=== PATIENT | male | born 1965 | race Caucasian/White ===

== ENCOUNTER 2019-07-07 21:17 | Emergency (ER) | payer OTHER ==
[~2019-07-07] VITALS: Ht 167.6 cm; Wt 80.7 kg
[2019-07-07 21:20] VITALS: BP 155/72
--- NOTE | 2019-07-07 21:20 | NUR ---
53 Y/O MALE C/O COUGH,V,FEVER X LAST NIGHT. RATES PAIN 8/10 AND DESCRIBES IT PRESSURE. VSS. DRY COUGH PRESENT. CHANGE OF APPETTIE. ABD IS ROUND, SOFT, ACITVE BS, NONTENDER. DIAHRREA (3 EPISODES), NO RESP DISTRESS NOTED. A & O X4. ALLERGIES: PENCILLIN PMH: DM, HTN, SC (5 X), STROKE (7 X), HEMORROID, SCIATICA.
--- NOTE | 2019-07-07 21:20 | NUR ---
to bed # 11 ambulatory
[2019-07-07] MEDS ORDERED: OSELTAMIVIR PHOSPHATE 75 MG CAP PO ONE (22:30)
[2019-07-07] MEDS ORDERED: KETOROLAC 60 MG/2 ML VIAL IM ONE (22:30)
[2019-07-07] MEDS ORDERED: ALBUTEROL 0.083% 2.5 MG/3 ML NEBU INH ONE (22:30)
--- NOTE | 2019-07-07 22:45 | NUR ---
PT REPORTS "I FEEL BETTER " AFTER BREATHING TX
--- NOTE | 2019-07-07 23:15 | NUR ---
Patient discharged with v/s stable. Written and verbal after care instructions given and explained. Patient alert, oriented and verbalized understanding of instructions. Ambulatory with steady gait. All questions addressed prior to discharge. ID band removed. Patient advised to follow up with PMD. Rx of TAMIFLU, ALBUTEROL, NAPROSYN, AND NITROGLYCERIN given. Patient educated on indication of medication including possible reaction and side effects. Opportunity to ask questions provided and answered.
== END 2019-07-07 23:15 | disposition home or self-care (01) ==
LOC: MED 21:17
DX: J10.1 Influenza due to other identified influenza virus with other respiratory manifestations (principal); R11.10 Vomiting, unspecified; Z88.0 Allergy status to penicillin
CPT/HCPCS: 87804; 93005; 94640; 96372; 99284; J1885; J7613

== ENCOUNTER 2020-04-08 17:35 | Emergency (ER) | payer OTHER ==
[~2020-04-08] VITALS: Ht 167.6 cm; Wt 83.0 kg
[2020-04-08 17:40] VITALS: BP 144/87
--- NOTE | 2020-04-08 17:50 | NUR ---
PATIENT PRESENTS TO ED WITH RIGHT LOWER EXTREMITIY BURNING AND STABBING PAIN R/T HIS SCIATICA . PT STATES FOR THE LAST TWO DAYS HE HAS HAD INTENSE SHARP PAIN RADIATING UP HIS RIGHT LEG TO HIS HIP, PT DESCRIBES PAIN UNBEARABLE. PT HAS PAIN MANAGEMENT APPOINTMENTS IN MAY BUT STATES HE CANNOT WAIT UNTIL THEN. AMBULATORY WITH CANE. DENIES N/V/D; SKIN IS PINK/WARM/DRY; AAOX4 WITH EVEN AND STEADY GAIT; LUNGS CLEAR BL; HR EVEN AND REGULAR; PT DENIES ANY FEVER, CP, SOB, OR COUGH AT THIS TIME; PATIENT STATES PAIN OF 9/10 AT THIS TIME; VSS; PATIENT POSITIONED FOR COMFORT; HOB ELEVATED; BEDRAILS UP X2; BED DOWN. ER MD MADE AWARE OF PT STATUS.
[2020-04-08] MEDS: HYDROcodone/APAP 5/325 MG 1 TAB TAB PO ONE (18:32)
[2020-04-08] MEDS: KETOROLAC 30 MG/ML VIAL IM ONE (18:32)
[2020-04-08 19:03] VITALS: BP 144/87
--- NOTE | 2020-04-08 19:03 | NUR ---
Patient discharged with v/s stable. Written and verbal after care instructions given and explained. Patient verbalized understanding. Ambulatory with steady gait. All questions addressed prior to discharge. Advised to follow up with PMD.
== END 2020-04-08 19:03 | disposition home or self-care (01) ==
LOC: MED 17:35
DX: R10.2 Pelvic and perineal pain (principal); I63.9 Cerebral infarction, unspecified; I51.89 Other ill-defined heart diseases; I10 Essential (primary) hypertension; J45.909 Unspecified asthma, uncomplicated; Z88.0 Allergy status to penicillin
CPT/HCPCS: 96372; 99283; J1885

== ENCOUNTER 2020-11-23 06:33 | Emergency (ER) | payer OTHER ==
[~2020-11-23] VITALS: Ht 167.6 cm; Wt 95.3 kg
[2020-11-23 06:40] VITALS: BP 142/90
--- NOTE | 2020-11-23 06:40 | NUR ---
TO BED AMBULATORY
--- NOTE | 2020-11-23 06:50 | NUR ---
BACK PAIN FOR 2 DAYS, S/P FALL FROM HIS SCOOTER LAST 11/21 , LANDED ON HIS BACK. PAIN 10/10 CRUSHING FEELING. AAOX4. VSS. PMH: DM2, 3 STROKES, HEART ATTACK, SCIATIC NERVE PAIN ALLERGIES: PENICILLINS, CODEINE
[2020-11-23] MEDS: KETOROLAC 30 MG/ML VIAL IM ONE (06:57)
--- NOTE | 2020-11-23 06:57 | NUR ---
PT AMBULATED TO THE BATHROOM FOR URINE COLLECTION
[2020-11-23 07:22] LABS: APPEARANCE,URINE CLEAR (CLEAR); BILIRUBIN,URINE NEGATIVE (NEGATIVE); BLOOD, URINE NEGATIVE (NEGATIVE); COLOR,URINE YELLOW (YELLOW); LEUKOCYTE ESTERASE ,URINE NEGATIVE (NEGATIVE); NITRITE, URINE NEGATIVE (NEGATIVE); UGLUCOSE NEGATIVE (NEGATIVE)
[2020-11-23] MEDS: CYCLOBENZAPRINE 10 MG TAB PO ONE (07:24)
--- NOTE | 2020-11-23 07:25 | NUR ---
Pt report RECIEVED FROM DERRELL RN. Transfer of care at this time. PT A&OX4, AMBULATES WITH CANE, ASSISTANCE WITH STANDING AT THIS TIME DUE TO PAIN. PT SITTING UP COMFORTABLY, UNLABORED, EVEN RESPIRATIONS.
--- NOTE | 2020-11-23 07:27 | NUR ---
Dr. Calderon is evaluating the patient at bedside.
[2020-11-23 07:51] LABS: BASOPHILS # (AUTO) 0.1 K/uL (0.00-0.22); BASOPHILS % (AUTO) 0.8 % (0.0-2.0); EOSINOPHILS # (AUTO) 0.2 K/uL (0-0.4); HEMATOCRIT 46.8 % (36-52); LYMPHOCYTES # (AUTO) 1.7 K/uL (2.0-11.5); MEAN CORPUSCULAR HEMOGLOBIN 31 pg (27-31); MEAN CORPUSCULAR HGB CONC 34 g/dL (33-37); MEAN CORPUSCULAR VOLUME 88.9 fL (80-94); MONOCYTES % (AUTO) 8.1 % (1.7-9.3); NEUTROPHILS % (AUTO) 74.7 % (42.2-75.2); PLATELET COUNT (AUTO) 238 K/uL (140-450); RED BLOOD CELL COUNT(AUTO) 5.26 MIL/uL (4.20-6.10); RED CELL DISTRIBUTION WIDTH 13.9 % (11.6-13.7)
[2020-11-23 08:05] LABS: PROTHROMBIN TIME 9.3 secs (10.8-13.4)
[2020-11-23 08:07] LABS: ALBUMIN 3.8 g/dL (3.4-5.0); ANION GAP 9.6 (8-16); CARBON DIOXIDE 31.5 mmol/L (21-32); CREATININE 1.7 mg/dL (0.6-1.3); POTASSIUM 4.1 mmol/L (3.5-5.1); TOTAL BILIRUBIN 0.5 mg/dL (0.0-1.0)
[2020-11-23 08:14] LABS: LYMPHOCYTES % (AUTO) 14.4 % (20.5-51.1)
--- NOTE | 2020-11-23 08:15 | NUR ---
CT CONSENT OBTAINED. CT WAS CALLED TO COME INVOICE CONTROL CLERK PT.
[2020-11-23] MEDS: MORPHINE SULFATE 10 MG/ML VIAL IVP ONE (08:16)
[2020-11-23] MEDS: ONDANSETRON 4 MG/2 ML VIAL IVP ONE (08:17)
[2020-11-23] MEDS: NACL 0.9% 1,000 ML IV ONE (08:18)
[2020-11-23] MEDS ORDERED: ACET-8386 PO (09:50)
[2020-11-23] MEDS ORDERED: ACET-2619 PO (09:50)
[2020-11-23] MEDS ORDERED: LIDO1ADH59 TP (09:50)
[2020-11-23] MEDS: LIDOCAINE 5% 1 EA PATCH TP STA (10:49)
[2020-11-23 11:09] VITALS: BP 142/90
--- NOTE | 2020-11-23 11:12 | NUR ---
Patient discharged with v/s stable. Written and verbal after care instructions given and explained. Patient alert, oriented and verbalized understanding of instructions. Ambulatory with to car. All questions addressed prior to discharge. ID band removed. Patient advised to follow up with PMD. Rx of TYLENOL, HYDROCODONE, LIDOCAINE given. Patient educated on indication of medication including possible reaction and side effects. Opportunity to ask questions provided and answered.
--- NOTE | 2020-11-24 07:50 | NUR ---
6 MG MORPHINE GIVEN ORDERED FOR ERMD. WASTED 4MG, 0.4 ML WITH JOHN CESPEDES.
== END 2020-11-23 11:12 | disposition home or self-care (01) ==
LOC: MED 06:33
DX: S22.32XA Fracture of one rib, left side, initial encounter for closed fracture (principal); N28.1 Cyst of kidney, acquired; D72.829 Elevated white blood cell count, unspecified; R74.01 Elevation of levels of liver transaminase levels; E11.65 Type 2 diabetes mellitus with hyperglycemia; R74.8 Abnormal levels of other serum enzymes; I10 Essential (primary) hypertension; E78.5 Hyperlipidemia, unspecified; F17.290 Nicotine dependence, other tobacco product, uncomplicated; Z98.890 Other specified postprocedural states; Z86.73 Personal history of transient ischemic attack (TIA), and cerebral infarction without residual deficits; W05.2XXA Fall from non-moving motorized mobility scooter, initial encounter; Y93.89 Activity, other specified; Y92.89 Other specified places as the place of occurrence of the external cause; Y99.8 Other external cause status
CPT/HCPCS: 36415; 71260; 74177; 80053; 81003; 83690; 85025; 85610; 90471; 90715; 96361; 96372; 96374; 96375; 99285; J1885; J2270; J2405; J7030; Q9967

== ENCOUNTER 2022-07-29 19:45 | Emergency (ER) | payer OTHER ==
[~2022-07-29] VITALS: Ht 167.6 cm; Wt 83.0 kg
[~2022-07-29 19:45] MED LIST: ACET-2619 PO; ACET-8905 PO; LIDO1ADH59 TP
[2022-07-29 20:03] VITALS: BP 146/100
[2022-07-29 20:05] VITALS: BP 146/100
--- NOTE | 2022-07-29 23:40 | NUR ---
PATIENT LEFT WITHOUT BEING SEEN BY DR. Sim. NO FURTHER CARE PROVIDED FOR PATIENT.
== END 2022-07-29 23:40 | disposition left against medical advice (07) ==
LOC: MED 19:45
DX: M25.571 Pain in right ankle and joints of right foot (principal); Z53.21 Procedure and treatment not carried out due to patient leaving prior to being seen by health care provider; W19.XXXA Unspecified fall, initial encounter; Y93.89 Activity, other specified; Y92.89 Other specified places as the place of occurrence of the external cause; Y99.8 Other external cause status
CPT/HCPCS: 73610; 73630